=== PATIENT | female | born 1970 | race Caucasian/White ===

== ENCOUNTER 2024-12-02 11:38 | Day surgery (SDC) | payer OTHER ==
[~2024-12-02] VITALS: Ht 180.3 cm; Wt 203.2 kg
[~2024-12-02 11:38] MED LIST: Lactated Ringer's 1,000 ML IV ONE; propofoL 50 ML IV ONE
[2024-12-02] MEDS ORDERED: ASCO500 PO (12:08)
[2024-12-02] MEDS ORDERED: FISH OIL 1,0001 EA10 PO (12:08)
[2024-12-02] MEDS ORDERED: MAGNESIUM OXID500 MG (12:09)
[2024-12-02] MEDS ORDERED: Vitamin D1000 UNI1 PO (12:10)
[2024-12-02] MEDS ORDERED: TUMS500 MG PO (12:10)
[2024-12-02] MEDS ORDERED: Lactated Ringer's 1,000 ML IV ONE (12:35)
[2024-12-02] MEDS ORDERED: propofoL 50 ML IV ONE (12:49)
[2024-12-02 13:57] VITALS: BP 104/69
== END 2024-12-02 14:01 | disposition home or self-care (01) ==
LOC: ORSCSDS 11:38
PROVIDERS: Surgery
PROC: 0DJD8ZZ Inspection of Lower Intestinal Tract, Via Natural or Artificial Opening Endoscopic (ICD-10-PCS; principal; 2024-12-02 13:00)
DX: Z12.11 Encounter for screening for malignant neoplasm of colon (principal); Z79.899 Other long term (current) drug therapy
CPT/HCPCS: J2704; J7120